=== PATIENT | female | born 1940 | race Caucasian/White ===

== ENCOUNTER 2018-07-20 | Emergency (ER) | payer OTHER ==
[2018-07-20] MEDS ORDERED: XARELTO2.5 MG PO (12:10)
[2018-07-20] MEDS ORDERED: SOTALOL HCL80 MG PO (12:29)
[2018-07-20] MEDS ORDERED: HYDROCODONE-AC1 EAC1 PO (12:30)
[2018-07-20] MEDS ORDERED: METOPROLOL SUCC50 M1 PO (12:30)
[2018-07-20] MEDS ORDERED: Lopressor25 MG PO (12:30)
[2018-07-20] MEDS ORDERED: HYDROCHLOROTH12.5 M2 PO (12:30)
[2018-07-20] MEDS ORDERED: KLOR-CON 1010 ME1 PO (12:30)
[2018-07-20] MEDS ORDERED: CARVEDILOL6.25 MG PO (12:30)
[2018-07-20] MEDS ORDERED: OXYBUTYNIN CHLOR5 M1 PO (12:31)
[2018-07-20] MEDS ORDERED: XARE20MG PO (12:31)
[2018-07-20] MEDS ORDERED: ESTRACE 0.01%42.5 GM V (12:31)
[2018-07-20] MEDS ORDERED: METFORMIN HYDR500 MG PO (12:31)
[2018-07-20] MEDS ORDERED: LOVASTATIN40 MG PO (12:31)
[2018-07-20] MEDS ORDERED: VERAPAMIL HCL180 M1 PO (12:32)
== END 2018-07-20 14:55 | disposition home or self-care (01) ==
DX: S42.474A Nondisplaced transcondylar fracture of right humerus, initial encounter for closed fracture (principal); M25.461 Effusion, right knee; M25.551 Pain in right hip; Z88.6 Allergy status to analgesic agent; Z88.8 Allergy status to other drugs, medicaments and biological substances; Z79.899 Other long term (current) drug therapy; W18.39XA Other fall on same level, initial encounter; Y93.01 Activity, walking, marching and hiking; Y92.89 Other specified places as the place of occurrence of the external cause; Y99.8 Other external cause status